=== PATIENT | male | born 1995 | race Caucasian/White ===

== ENCOUNTER 2017-02-07 22:08 | Emergency (ER) | payer OTHER ==
[~2017-02-07] VITALS: Ht 175.3 cm; Wt 86.2 kg
[2017-02-07 22:23] VITALS: TEMP 37; Ht 175.3 cm; Wt 86.2 kg
[2017-02-07] MEDS ORDERED: HYDROCODONE/ACETAMOPHEN 5/325MG TAB PO STA (22:52)
--- NOTE | 2017-02-07 22:58 | EMERGENCY ROOM VISIT NOTE ---
History Report prepared by Frannieibjsa: Cam Vega Under the Supervision of: Dr. Slick Monahan D.O. First contact with patient: 22:47 Chief Complaint: NECK PAIN Stated Complaint: EXTREME NECK PAIN History of Present Illness The patient is a 21 year old male who presents to the Emergency Room with complaints of intermittent right-sided neck pain beginning last night. He states that he was lifting a lot of objects and throwing them into a fire yesterday and feels that he strained his neck. He was seen at an urgent care center today and was prescribed a muscle relaxer, but states that it has not improved his pain. The patient states that nothing has improved his pain. Source of History: patient Onset: Last night Position: neck (right side) Timing: intermittent Modifying Factors (Relieving): other (none) Review of Systems See HPI for pertinent positives and negatives. A total of ten systems were reviewed and were otherwise negative. Past Medical & Surgical Medical Problems: (1) No significant medical problems Surgical Problems: (1) No significant past surgical history Family History No pertinent family history stated. Social History Smoking Status: Current Every Day Smoker Alcohol Use: none Marital Status: single Housing Status: lives with family Occupation Status: student Current/Historical Medications Scheduled Cyclobenzaprine Hcl (Flexeril), 10 MG PO TID Allergies Coded Allergies: No Known Allergies (Unverified , 02/07/17) Physical Exam Vital Signs Date Time Temp Pulse Resp B/P (MAP) Pulse Ox O2 Delivery O2 Flow Rate FiO2 02/07/17 22:23 37.0 88 16 111/55 98 Room Air Physical Exam GENERAL: Awake, alert, well-appearing, in no distress HENT: Normocephalic, atraumatic. Oropharynx unremarkable. EYES: Normal conjunctiva. Sclera non-icteric. NECK: Tenderness to the paraspinal musculature on the right side. Decreased ROM due to pain. RESPIRATORY: Clear to auscultation. CARDIAC: Regular rate, normal rhythm. Extremities warm and well perfused. Pulses equal. ABDOMEN: Soft, non-distended. No tenderness to palpation. No rebound or guarding. No masses. RECTAL: Deferred. MUSCULOSKELETAL: Chest examination reveals no tenderness. The back is symmetrical on inspection without obvious abnormality. There is no CVA tenderness to palpation. No joint edema. LOWER EXTREMITIES: Calves are equal size bilaterally and non-tender. No edema. No discoloration. NEURO: Normal sensorium. No sensory or motor deficits noted. SKIN: No rash or jaundice noted. Medical Decision & Procedures ED Course 2247: The patient was evaluated in room B5. A complete history and physical exam was performed. 2251: Ordered Prednisone Tab 60 mg PO, [place] 5/325 Tab PO. 2299: I reevaluated the patient. Discussed results and discharge instructions: he verbalized understanding and agreement. The patient is ready for discharge. Medical Decision Differential diagnoses include but are not limited to; sprain, strain, pinched nerve, herniated disc, and torticollis. Patient will be treated with narcotic pain medicine as well as a steroid. Patient was instructed to continue taking ibuprofen as well as Flexeril. If pain is persistent he needs follow-up for potential MRI due to the possibility of having a herniated disc. He has no radicular symptoms and no current neurologic symptoms in the upper extremities to make me think that he currently has a significant herniated disc Impression Primary Impression: Neck strain Scribe Attestation The scribe's documentation has been prepared under my direction and personally reviewed by me in its entirety. I confirm that the note above accurately reflects all work, treatment, procedures, and medical decision making performed by me. Departure Information Dispostion Home / Self-Care Prescriptions Methylprednisolone (MEDROL DOSEPAK) 4 Mg Haresh 0 PO DAILY, #1 PKT Prov: Slick Monahan, DO 02/07/17 Hydrocodone/Acetaminophen 5MG/325MG ([place] 5MG/325MG) Tab 1 TABLET PO Q6 Y for Pain for 5 Days, #10 TAB Prov: Slick Monahan, DO 02/07/17 Referrals No Doctor, Assigned (PCP) Patient Instructions ED Sprain Strain Neck, My [facility]
[2017-02-07] MEDS ORDERED: CYCL10TA6 PO (23:08)
[2017-02-07] MEDS ORDERED: METH4PAK PO (23:14)
[2017-02-07] MEDS ORDERED: HYDR-5688 PO (23:14)
[2017-02-07 23:34] VITALS: BP 105/65; PULSE 73; O2SAT 100
== END 2017-02-07 23:36 | disposition home or self-care (01) ==
LOC: C.EDB 22:09
DX: S16.1XXA Strain of muscle, fascia and tendon at neck level, initial encounter (principal); X58.XXXA Exposure to other specified factors, initial encounter; F17.200 Nicotine dependence, unspecified, uncomplicated